=== PATIENT | female | born 1980 | race Two or more races ===

== ENCOUNTER 2020-08-31 11:07 | Emergency (ER) | payer OTHER ==
[~2020-08-31] VITALS: Ht 160 cm; Wt 117.9 kg
[2020-08-31 11:19] VITALS: BP 132/78
[2020-08-31] MEDS ORDERED: LIDOCAINE 1% HCL (LOCAL ANESTH.) INJ 20ML MDV IJ ONE (12:45)
== END 2020-08-31 13:13 | disposition home or self-care (01) ==
LOC: ER 11:07
DX: S90.452A Superficial foreign body, left great toe, initial encounter (principal); Z88.0 Allergy status to penicillin; W52.XXXA Crushed, pushed or stepped on by crowd or human stampede, initial encounter; Y93.89 Activity, other specified; Y92.89 Other specified places as the place of occurrence of the external cause; Y99.8 Other external cause status
CPT/HCPCS: 28190; 99284; J2001